=== PATIENT | female | born 1970 | race Caucasian/White ===

== ENCOUNTER 2020-10-21 19:51 | Emergency (ER) | payer OTHER ==
[2020-10-21] MEDS ORDERED: IBUPROFEN 400 MG TAB ONE (21:33)
--- NOTE | 2020-10-21 22:27 | ER ---
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 Twisted her ll1 ankle when she missed last step. Coronavirus screen: Client denies travel out of the [place] in the last 14 days. At this time, the client does not indicate any symptoms associated with coronavirus-19. Ebola Screen: Patient denies travel to an Ebola-affected area in the 21 days before illness onset. Initial Sepsis Screen: Does the patient meet any 2 criteria? HR > 90 bpm. No. Patient's initial sepsis screen is negative. Does the patient have a suspected source of infection? Yes: Bone or joint infection. Risk Assessment: Do you want to hurt yourself or someone else? Patient reports no desire to harm self or others. Onset of symptoms was October 21, 2020. 20:06 Method Of Arrival: Wheelchair ll1 20:06 Acuity: ROBBIN 4 ll1 Historical: - Allergies: 20:07 No Known Allergies; ll1 - PSHx: 20:07 Gastric Bypass; ; tummy tuck and breast reconstructive surgery; ll1 - Immunization history:: Flu vaccine is not up to date. - Social history:: Smoking status: Patient denies any tobacco usage or history of. Screenin:45 Abuse screen: Denies threats or abuse. Nutritional screening: No deficits noted. ad1 Tuberculosis screening: No symptoms or risk factors identified. Fall Risk Fall in past 12 months (25 points). Assessment: 21:23 General: Appears in no apparent distress. Behavior is calm, cooperative, Smells of ad1 Reports Denies. Pain: Complains of pain in Left ankle Pain currently is 6 out of 10 on a pain scale. Quality of pain is described as throbbing, Pain began today prior to arrival Is. Neuro: No deficits noted. Level of Consciousness is awake, alert, obeys commands, Oriented to person, place, time, situation, Appropriate for age [employer] are. Cardiovascular: No deficits noted. Heart tones present Pulses are all present. Respiratory: No deficits noted. Airway is patent Trachea midline Respiratory effort is even, unlabored. GI: No signs and/or symptoms were reported involving the gastrointestinal system. : No signs and/or symptoms were reported regarding the genitourinary system. EENT: No signs and/or symptoms were reported regarding the EENT system. Musculoskeletal: Swelling present in Left ankle. 22:08 Reassessment: Patient appears in no apparent distress at this time. Patient and/or ad1 family updated on plan of care and expected duration. Pain level reassessed. Patient is alert, oriented x 3, equal unlabored respirations, skin warm/dry/pink. Patient states feeling better. Patient states symptoms have improved. 22:52 Reassessment: Patient appears in no apparent distress at this time. Patient and/or jb4 family updated on plan of care and expected duration. Pain level reassessed. Patient is alert, oriented x 3, equal unlabored respirations, skin warm/dry/pink. Vital Signs: 20:06 BP 127 / 98; Pulse 98; Resp 17; Temp 97.6; Pulse Ox 99% ; Weight 88.45 kg; Height 5 ft. ll1 4 in. (162.56 cm); Pain 8/10; 21:26 BP 122 / 93; Pulse 91; Resp 18; Pulse Ox 95% ; ad1 22:08 BP 129 / 84; Pulse 97; Resp 16; Pulse Ox 96% ; ad1 20:06 Body Mass Index 33.47 (88.45 kg, 162.56 cm) ll1 ED Course: 19:53 Patient arrived in ED. bp1 20:07 Triage completed. ll1 20:07 Arm band placed on. ll1 20:55 Clinton Nunez MD is Attending Physician. 7 21:45 Patient has correct armband on for positive identification. Bed in low position. Call ad1 light in reach. Side rails up X 1. 21:46 Ankle Left 3 View XRAY In Process Unspecified. EDMS 21:46 Sim Martin, NU is Primary Nurse. jb4 22:26 Deandre Rodriguez MD is Referral Physician. 7 22:52 No provider procedures requiring assistance completed. Patient did not have IV access jb4 during this emergency room visit. Administered Medications: 21:22 Drug: Motrin 800 mg Route: PO; ad1 Outcome: 22:27 Discharge ordered by . mh7 22:52 Discharged to home ambulatory, with family. jb4 22:52 Condition: stable 22:52 Discharge instructions given to patient, Instructed on discharge instructions, follow up and referral plans. medication usage, crutch walking, Demonstrated understanding of instructions, follow-up care, medications, crutch walking, Prescriptions given X 1. 22:53 Patient left the ED. jb4 Signatures: Dispatcher [employer] EDMS Kailyn Brandt RN RN ad1 Sim Martin RN RN jb4 Aletha Tim RN RN ll1 Lida Kent Maurice, MD MD mh7 Corrections: (The following items were deleted from the chart) 23:57 23:55 Abuse screen: Denies threats or abuse. ad1 ad1 23:55 Nutritional screening: No deficits noted. ad1 ad1 23:55 Tuberculosis screening: No symptoms or risk factors identified. ad1 ad1 :57 23:55 Fall Risk Fall in past 12 months (25 points). ad1 ad1
--- NOTE | 2020-10-21 22:28 | EDPHYS ---
Physician Documentation [facility] Name: Maria T Cai Age: 50 yrs Sex: Female : 1970 Arrival Date: 10/21/2020 Time: 19:53 Bed 15 Private MD: ED Physician Clinton Nunez HPI: 10/21 21:39 This 50 yrs old Female presents to ER via Wheelchair with complaints of Fall mh7 Injury, Ankle Injury. 21:40 The patient presents with an injury, pain, that is acute, swelling, tenderness. The mh7 complaints affect the left ankle. Onset: The symptoms/episode began/occurred today. Context: The problem was sustained on a street or driveway, resulted from a mis-step by the patient, stairs, The mechanism of injury involved inversion of the affected ankle. The patient can partially bear weight on the affected extremity. the patient is able to ambulate, with mild difficulty. Associated signs and symptoms: Pertinent positives: swelling, Pertinent negatives: calf tenderness, fever, nausea, numbness, rash, tingling, vomiting, warmth, weakness. Modifying factors: The symptoms are alleviated by nothing, the symptoms are aggravated by weight bearing. Severity of symptoms: At their worst the symptoms were moderate, earlier today, in the emergency department the symptoms have improved, mildly. Historical: - Allergies: 20:07 No Known Allergies; ll1 - PSHx: 20:07 Gastric Bypass; ; tummy tuck and breast reconstructive surgery; ll1 - Immunization history:: Flu vaccine is not up to date. - Social history:: Smoking status: Patient denies any tobacco usage or history of. ROS: 21:40 Constitutional: Negative for fever, chills, and weight loss, Eyes: Negative for injury, mh7 pain, redness, and discharge, ENT: Negative for injury, pain, and discharge, Neck: Negative for injury, pain, and swelling, Cardiovascular: Negative for chest pain, palpitations, and edema, Respiratory: Negative for shortness of breath, cough, wheezing, and pleuritic chest pain, Abdomen/GI: Negative for abdominal pain, nausea, vomiting, diarrhea, and constipation, Back: Negative for injury and pain, : Negative for injury, bleeding, discharge, and swelling, Skin: Negative for injury, rash, and discoloration, Neuro: Negative for headache, weakness, numbness, tingling, and seizure, Psych: Negative for depression, anxiety, suicide ideation, homicidal ideation, and hallucinations, Allergy/Immunology: Negative for hives, rash, and allergies, Endocrine: Negative for neck swelling, polydipsia, polyuria, polyphagia, and marked weight changes, Hematologic/Lymphatic: Negative for swollen nodes, abnormal bleeding, and unusual bruising. Exam: 21:40 Constitutional: This is a well developed, well nourished patient who is awake, alert, mh7 and in no acute distress. Head/Face: Normocephalic, atraumatic. 21:40 Skin: Warm, dry with normal turgor. Normal color with no rashes, no lesions, and no evidence of cellulitis. Neuro: Awake and alert, GCS 15, oriented to person, place, time, and situation. Cranial nerves II-XII grossly intact. Motor strength 5/5 in all extremities. Sensory grossly intact. Cerebellar exam normal. Normal gait. Psych: Awake, alert, with orientation to person, place and time. Behavior, mood, and affect are within normal limits. 21:40 Musculoskeletal/extremity: Extremities: noted in the left ankle: pain, swelling, tenderness, ROM: limited active range of motion due to pain, in the left ankle, limited passive range of motion due to pain, in the left ankle, Circulation is intact in all extremities. Pulses: are normal with no appreciated deficits, Perfusion: the patient is normally perfused throughout, Perfusion: the extremity is normally perfused throughout, Calf tenderness, is absent, Edema, is not appreciated, Sensation intact. Compartment Syndrome exam of affected extremity: is normal. no numbness, no tingling, no sensation deficit, no palor, no weak pulses, Joints: the left ankle displays pain at rest, painful range of motion, swelling, tenderness, Weight bearing: can bear weight with assistance only, Tendon exam: specific tendon testing normal through active and passive range of motion 22:24 Neck: Trachea midline, no thyromegaly or masses palpated, and no cervical mh7 lymphadenopathy. Supple, full range of motion without nuchal rigidity, or vertebral point tenderness. No Meningismus. Chest/axilla: Normal chest wall appearance and motion. Nontender with no deformity. No lesions are appreciated. Cardiovascular: Regular rate and rhythm with a normal S1 and S2. No gallops, murmurs, or rubs. Normal PMI, no JVD. No pulse deficits. Respiratory: Lungs have equal breath sounds bilaterally, clear to auscultation and percussion. No rales, rhonchi or wheezes noted. No increased work of breathing, no retractions or nasal flaring. Abdomen/GI: Soft, non-tender, with normal bowel sounds. No distension or tympany. No guarding or rebound. No evidence of tenderness throughout. Vital Signs: 20:06 BP 127 / 98; Pulse 98; Resp 17; Temp 97.6; Pulse Ox 99% ; Weight 88.45 kg; Height 5 ft. ll1 4 in. (162.56 cm); Pain 8/10; 21:26 BP 122 / 93; Pulse 91; Resp 18; Pulse Ox 95% ; ad1 22:08 BP 129 / 84; Pulse 97; Resp 16; Pulse Ox 96% ; ad1 20:06 Body Mass Index 33.47 (88.45 kg, 162.56 cm) ll1 Procedures: 22:30 Splinting: Splint applied to left ankle using Air Cast, applied by tech. Examined by [facility], post splint application: neurovascular intact, 2+ distal pulses palpable, brisk capillary refill noted, Patient tolerated well. MDM: 22:24 Differential diagnosis: fracture, sprain, arthritis. Data reviewed: vital signs, nurses [facility] notes, radiologic studies, plain films. Data interpreted: Pulse oximetry: on room air is 96 %. Interpretation: normal. Counseling: I had a detailed discussion with the patient and/or guardian regarding: the historical points, exam findings, and any diagnostic results supporting the discharge/admit diagnosis, radiology results, the need for outpatient follow up, to return to the emergency department if symptoms worsen or persist or if there are any questions or concerns that arise at home. Response to treatment: the patient's symptoms have markedly improved after treatment. 22:27 Patient medically screened. [facility] 10/21 21:17 Order name: Ankle Left 3 View XRAY [facility] Administered Medications: 21:22 Drug: Motrin 800 mg Route: PO; ad1 Disposition: 10/21/20 22:27 Discharged to Home. Impression: Left Ankle Sprain. - Condition is Stable. - Discharge Instructions: Ankle Sprain, [id number]. - Prescriptions for Ibuprofen 800 mg Oral Tablet - take 1 tablet by ORAL route every 8 hours As needed take with food; 15 tablet. - Medication Reconciliation Form, Thank You Letter, Antibiotic Education, Prescription Opioid Use form. - Follow up: Deandre Rodriguez MD; When: 2 - 3 days; Reason: Worsening of condition, Recheck today's complaints. - Problem is new. - Symptoms have improved. Signatures: Dispatcher [employer] EDMS Kailyn Brandt RN RN ad1 Sim Martin RN RN jb4 Aletha Tim RN RN ll1 Clinton Nunez MD MD mh7 Corrections: (The following items were deleted from the chart) 22:53 22:27 10/21/2020 22:27 Discharged to Home. Impression: Left Ankle Sprain. Condition is jb4 Stable. Forms are Medication Reconciliation Form, Thank You Letter, Antibiotic Education, Prescription Opioid Use. Follow up: Deandre Rodriguez; When: 2 - 3 days; Reason: Worsening of condition, Recheck today's complaints. Problem is new. Symptoms have improved. mh7
[2020-10-22 05:26] VITALS: BP 129/84; O2SAT 96
[2020-10-22 05:41] VITALS: TEMP 98.9
--- NOTE | 2020-10-22 10:49 | RAD REPORT ---
EXAM DESCRIPTION: RAD - Ankle Left 3 View - 10/21/2020 9:46 pm CLINICAL HISTORY: trauma Pain and swelling COMPARISON: No comparisons FINDINGS: Moderate soft tissue swelling is seen adjacent to the lateral malleolus. No acute fracture or dislocation.
== END 2020-10-21 22:53 | disposition home or self-care (01) ==
LOC: ER 19:51
DX: S93.402A Sprain of unspecified ligament of left ankle, initial encounter (principal); X58.XXXA Exposure to other specified factors, initial encounter; Y93.01 Activity, walking, marching and hiking; Y92.89 Other specified places as the place of occurrence of the external cause; Z98.84 Bariatric surgery status
CPT/HCPCS: 99284